=== PATIENT | female | born 1955 | race Caucasian/White ===

== ENCOUNTER 2023-02-21 16:15 | Emergency (ER) | payer MEDICARE, MEDICAID ==
[~2023-02-21] VITALS: Ht 165.1 cm; Wt 59.0 kg
[2023-02-21 16:45] LABS: Hematocrit 44.4 % (36.0-46.0); Hemoglobin 14.9 g/dL (12.2-16.2); Mean Corpuscular Hemoglobin 31.2 pg (28.0-32.0); Mean Corpuscular Hgb Conc. 33.5 g/dL (32.0-36.0); Mean Corpuscular Volume 93.4 fL (80.0-100.0); Red Blood Cells 4.76 10^6/uL (4.0-5.20); Red Cell Distribution Width 13.4 % (11.8-14.3); White Blood Cell 8.3 10^3/uL (4.4-10.8)
[2023-02-21 16:52] LABS: Basophils % (manual) 0 (0.0-2.0); Blast Cells 0; Eosinophils % (manual) 0 (0-7); Metamyelocytes % 0; Myelocytes % 0; Promyelocytes % 0; Reactive Lymphocytes 0
[2023-02-21 17:13] LABS: Alanine Aminotransferase 42 U/L (7-40); Albumin 3.8 g/dL (3.2-4.8); Alkaline Phosphatase 59 U/L (46-116); Anion Gap 11 (5-15); Aspartate Aminotransferase 56 U/L (13-40); BUN/Creatinine Ratio 17.6 (10.0-20.0); Blood Urea Nitrogen 13 mg/dL (9-23); Calcium 8.5 mg/dL (8.7-10.4); Carbon Dioxide 23 mmol/L (20-30); Chloride 105 mmol/L (98-107); Glucose 113 mg/dL (74-106); Lipase 56 U/L (12-53); Magnesium 1.7 mg/dL (1.6-2.6); Potassium 2.7 mmol/L (3.5-5.1); Sodium 139 mmol/L (136-145)
[2023-02-21 17:14] LABS: Bilirubin, Total 0.4 mg/dL (0.2-1.0)
[2023-02-21 17:56] LABS: Band Neutrophils % (manual) 1; Lymphocytes % (manual) 10 (10.0-50.0); Monocytes % (manual) 18 (0-12)
[2023-02-21 17:57] LABS: Platelet Estimate Adequate
[2023-02-21] MEDS ORDERED: POTASSIUM CHL 20 Meq TABLET PO ONE (18:15)
[2023-02-21 18:38] LABS: Urine Bacteria FEW /hpf (None Seen); Urine Blood 3+ /uL (Negative); Urine Clarity HAZY (Clear); Urine Color Yellow (Yellow); Urine Hyaline Cast FEW /lpf (0 - 2); Urine Mucus FEW (None Seen); Urine Protein, UAD 1+ (Negative); Urine Specific Gravity 1.012 (1.001-1.035); Urine Urobilinogen Normal (Negative); Urine WBC 16 /hpf (0 - 5)
[2023-02-21] MEDS ORDERED: IOHEXOL 300 MG/ML 100ML BOTTLE IJ ONE (18:51)
[2023-02-21] MEDS ORDERED: SODIUM CHLORIDE 0.9% 1,000 ML IV ONE (19:00)
[2023-02-21] MEDS ORDERED: cefTRIAXone 1GM/50ML D5W 50 ML IV ONE (19:45)
[2023-02-21 19:59] LABS: COVID19 ANTIGEN SOFIA FIA NEGATIVE (NEGATIVE)
[2023-02-21] MEDS ORDERED: CIPR-173 PO (20:57)
[2023-02-21] MEDS ORDERED: HYDROcodone-ACET 5/325MG TAB PO ONE (21:00)
[2023-02-21 21:13] VITALS: TEMP 97.7
[2023-02-22 03:51] VITALS: BP 115/61; PULSE 65; RESP 12; O2SAT 98
== END 2023-02-21 20:58 | disposition home or self-care (01) ==
LOC: EDBD 16:15 → ER 16:15
DX: S22.088A Other fracture of T11-T12 vertebra, initial encounter for closed fracture (principal); K80.20 Calculus of gallbladder without cholecystitis without obstruction; E87.6 Hypokalemia; K52.9 Noninfective gastroenteritis and colitis, unspecified; N39.0 Urinary tract infection, site not specified; Z79.2 Long term (current) use of antibiotics; Z20.822 Contact with and (suspected) exposure to COVID-19; X58.XXXA Exposure to other specified factors, initial encounter; Y93.89 Activity, other specified; Y92.89 Other specified places as the place of occurrence of the external cause; Y99.8 Other external cause status
CPT/HCPCS: 36415; 71045; 74176; 74177; 80053; 81001; 83605; 83690; 83735; 84484; 85007; 85027; 87426; 93005; 96361; 96365; 99285; J0696; J7030; Q9967